=== PATIENT | female | born 1950 | race Caucasian/White ===

== ENCOUNTER 2019-07-13 13:12 | Outpatient (CLI) | payer MEDICARE ==
[~2019-07-13 13:12] MED LIST: HYDR15SO7 GT; LORA0.5T PO; NYST1000 PO; ONDA8TAB6 PO; PROC-8 PO
== END 2019-07-13 23:59 | disposition home or self-care (01) ==
LOC: RAD 13:12
PROVIDERS: ATTEND Student in an Organized Health Care Education/Training Program
DX: R13.12 Dysphagia, oropharyngeal phase (principal); C01 Malignant neoplasm of base of tongue; K21.9 Gastro-esophageal reflux disease without esophagitis; I10 Essential (primary) hypertension; Z85.89 Personal history of malignant neoplasm of other organs and systems; Z79.899 Other long term (current) drug therapy; Z87.891 Personal history of nicotine dependence
CPT/HCPCS: 74230